=== PATIENT | male | born 1945 | race Caucasian/White ===

== ENCOUNTER 2016-11-26 16:23 | Inpatient (IN) | payer MEDICARE, BC ==
[~2016-11-26] VITALS: Ht 177.8 cm; Wt 85.7 kg
[2016-11-26] MEDS ORDERED: SIMV20TA3 PO (16:40)
[2016-11-26 16:46] LABS: BASOPHILS % (AUTO) 0 % (0-10); EOSINOPHILS # (AUTO) 0.1 10^3/uL (0.0-0.3); EOSINOPHILS % (AUTO) 2 % (0-10); LYMPHOCYTES % (AUTO) 37 % (12-44); MEAN CORPUSCULAR HEMOGLOBIN 32 PG (25-34); MEAN CORPUSCULAR HGB CONC 34 G/DL (32-36); MEAN CORPUSCULAR VOLUME 94 FL (80-99); MEAN PLATELET VOLUME 10.7 FL (7.4-10.4); MONOCYTES # (AUTO) 0.9 X 10^3 (0.0-1.0); MONOCYTES % (AUTO) 11 % (0-12); NEUTROPHILS # (AUTO) 4.1 X 10^3 (1.8-7.8); NEUTROPHILS % (AUTO) 50 % (42-75); PLATELET COUNT 152 10^3/uL (130-400); RED BLOOD COUNT 4.28 10^6/uL (4.35-5.85); RED CELL DISTRIBUTION WIDTH 13.1 % (10.0-14.5); WHITE BLOOD COUNT 8.2 10^3/uL (4.3-11.0)
--- NOTE | 2016-11-26 16:54 | ED Cardiac General ---
History of Present Illness General Chief Complaint: Cardiac/General Problems Stated Complaint: IRREGULAR HEART RATE Source: patient Exam Limitations: no limitations History of Present Illness Time seen by provider: 16:49 Initial Comments The patient is a 71-year-old white male who presents to the emergency room after apparently receiving a message from his material specialist in [place] that his heart monitor was alarming an irregular or rapid rhythm. He states that 6 weeks ago while in [facility] he had a syncopal episode while walking down the street. He did not bother to see his material specialist until about 2 weeks ago. He was instructed that he should not fly so he drove here for his 55th high school reunion. Apparently there was an attempt yesterday to get a hold of him but this was not successful. He went to the green party/dinner. Today he played golf with his old cronies and then decided to come here after receiving the notification. Allergies and Home Medications Allergies Coded Allergies: No Known Drug Allergies (Unverified , 11/26/16) Home Medications Simvastatin 20 Mg Tablet, (Reported) Review of Systems Constitutional: see HPI EENTM: No Symptoms Reported Cardiovascular: Irregular Heart Rate, Other (message from material specialist in [place] was to get to the emergency room he would need a pacemaker.) Gastrointestinal: No Symptoms Reported Genitourinary: No Symptoms Reported Musculoskeletal: no symptoms reported Skin: no symptoms reported Psychiatric/Neurological: No Symptoms Reported Past Cyrxtpc-Vuphuw-Qdcgsn Hx Patient Social History Alcohol Use: Regular Use Alcohol Beverage of Choice: Wine Recreational Drug Use: No Smoking Status: Never a Smoker Recent Foreign Travel: No Contact w/Someone Who Travel: No Surgeries History of Surgeries: Yes Surgeries: Orthopedic Cardiovascular History of Cardiac Disorders: Yes (STENT X3) Cardiac Disorders: High Cholesterol Genitourinary History of Genitourinary Disor: No Gastrointestinal History of Gastrointestinal Di: No Endocrine History of Endocrine Disorders: No Physical Exam Vital Signs Vital Sign - Last 12Hours 11/26/16 16:23 Temp 99.0 Pulse 142 Resp 18 B/P (MAP) 93/78 Capillary Refill : General Appearance: No Apparent Distress, WD/WN HEENT: Normal ENT Inspection Neck: Normal Inspection Respiratory: Chest Non Tender, Lungs Clear, Normal Breath Sounds, No Accessory Muscle Use, No Respiratory Distress Cardiovascular: Irregularly Irregular Gastrointestinal: Normal Bowel Sounds, No Organomegaly, No Pulsatile Mass, Non Tender Extremity: Normal Capillary Refill, Normal Inspection, Normal Range of Motion, Non Tender, No Calf Tenderness, No Pedal Edema Neurologic/Psychiatric: Alert, Oriented x3, No Motor/Sensory Deficits, Normal Mood/Affect Skin: Normal Color Lymphatic: No Adenopathy Progress/Results/Core Measures Results/Orders Lab Results Laboratory Tests Test 11/26/16 16:36 Range/Units White Blood Count 8.2 4.3-11.0 10^3/uL Red Blood Count 4.28 L 4.35-5.85 10^6/uL Hemoglobin 13.8 13.3-17.7 G/DL Hematocrit 40 40-54 % Mean Corpuscular Volume 94 80-99 FL Mean Corpuscular Hemoglobin 32 25-34 PG Mean Corpuscular Hemoglobin Concent 34 32-36 G/DL Red Cell Distribution Width 13.1 10.0-14.5 % Platelet Count 152 130-400 10^3/uL Mean Platelet Volume 10.7 H 7.4-10.4 FL Neutrophils (%) (Auto) 50 42-75 % Lymphocytes (%) (Auto) 37 12-44 % Monocytes (%) (Auto) 11 0-12 % Eosinophils (%) (Auto) 2 0-10 % Basophils (%) (Auto) 0 0-10 % Neutrophils # (Auto) 4.1 1.8-7.8 X 10^3 Lymphocytes # (Auto) 3.0 1.0-4.0 X 10^3 Monocytes # (Auto) 0.9 0.0-1.0 X 10^3 Eosinophils # (Auto) 0.1 0.0-0.3 10^3/uL Basophils # (Auto) 0.0 0.0-0.1 10^3/uL Sodium Level 140 135-145 MMOL/L Potassium Level 4.2 3.6-5.0 MMOL/L Chloride Level 109 H 98-107 MMOL/L Carbon Dioxide Level 23 21-32 MMOL/L Anion Gap 8 5-14 MMOL/L Blood Urea Nitrogen 23 H 7-18 MG/DL Creatinine 1.39 H 0.60-1.30 MG/DL Estimat Glomerular Filtration Rate 50 BUN/Creatinine Ratio 17 Glucose Level 127 H 70-105 MG/DL Calcium Level 9.4 8.5-10.1 MG/DL Total Bilirubin 0.9 0.1-1.0 MG/DL Aspartate Amino Transf (AST/SGOT) 34 5-34 U/L Alanine Aminotransferase (ALT/SGPT) 37 0-55 U/L Alkaline Phosphatase 97 40-136 U/L Troponin I < 0.30 <0.30 NG/ML Total Protein 6.5 6.4-8.2 GM/DL Albumin 3.8 3.2-4.5 GM/DL My Orders Orders - CHERELLE HOUSTON MD Ekg Tracing (11/26/16 16:30) Cbc With Automated Diff (11/26/16 16:40) Comprehensive Metabolic Panel (11/26/16 16:40) Troponin I (11/26/16 16:40) Digoxin Injection (Lanoxin Injection) (11/26/16 17:30) Sodium Chloride (Ad... W/Diltiazem Drip (11/26/16 17:30) Ns Iv 1000 Ml (Sodium Chloride 0.9%) (11/26/16 17:30) Thyroid Stimulating Hormone (11/26/16 17:30) Vital Signs/I&O Vital Sign - Last 12Hours 11/26/16 16:23 Temp 99.0 Pulse 142 Resp 18 B/P (MAP) 93/78 Departure Communication (Admissions) Progress Notes 1715: Discussed with LEIGH Miguel. We felt that the rate of 150 which appeared to be regular was likely to be atrial flutter. The issues were complicated by the relative hypotension. We agreed on a plan to use adenosine to see if we could unveil the atrial flutter. The plan was then because of the relative hypotension to use digoxin and a low-dose Cardizem drip to control the rate. After reentering the room with this plan and talking with the patient his rate dropped to the 110-125 range and was clearly irregular with flutter waves being noted. Adenosine was therefore unnecessary. We will proceed with admission and I spoke to Dr. Vallejo by phone at 1826. Impression Impression: Primary Impression: atrial fib/flutter with rapid ventricular response Disposition: ADMITTED INPATIENT Condition: Stable/Unchanged Admissions Decision to Admit Reason: Admit from ER (General) Decision to Admit/Date: Nov 26, 2016 Time/Decision to Admit Time: 17:41 Transfer Time Spoke to Accepting Phy: 17:41 Departure-Patient Inst. Referrals: NO,LOCAL PHYSICIAN (PCP/Family) Primary Care Physician CHERELLE HOUSTON MD Nov 26, 2016 16:53
[2016-11-26 17:03] LABS: ANION GAP 8 MMOL/L (5-14); BLOOD UREA NITROGEN 23 MG/DL (7-18); CARBON DIOXIDE 23 MMOL/L (21-32); CHLORIDE 109 MMOL/L (98-107); CREATININE SERUM 1.39 MG/DL (0.60-1.30); POTASSIUM 4.2 MMOL/L (3.6-5.0); SODIUM 140 MMOL/L (135-145)
[2016-11-26 17:04] LABS: ALANINE AMINOTRANSFERASE 37 U/L (0-55); ALBUMIN 3.8 GM/DL (3.2-4.5); ASPARTATE AMINO TRANSFERASE 34 U/L (5-34); BILIRUBIN,TOTAL 0.9 MG/DL (0.1-1.0); BUN/CREATININE RATIO 17; CALCIUM 9.4 MG/DL (8.5-10.1); GFR ESTIMATED 50; GLUCOSE 127 MG/DL (70-105); TOTAL PROTEIN 6.5 GM/DL (6.4-8.2)
[2016-11-26 17:09] LABS: TROPONIN I < 0.30 NG/ML (<0.30)
[2016-11-26] MEDS ORDERED: DILTIAZEM DRIP 100 MG in SODIUM CHLORIDE (ADD-VANTAGE) 100 ML IV SCH (17:30)
[2016-11-26] MEDS ORDERED: NS IV 1000 ML 1,000 ML IV SCH (17:30)
[2016-11-26] MEDS ORDERED: DIGOXIN 0.25 MG/ML (LANOXIN) 2 ML AMP IV ONE (17:30)
[2016-11-26 18:25] VITALS: BP 116/89
[2016-11-26] MEDS ORDERED: CATHETER FLUSH 10 ML SYR IV PRN (18:30)
[2016-11-26] MEDS: DILTIAZEM DRIP 100 MG/NS 100 ML IV SCH ×2 (19:25)
[2016-11-26] MEDS: APIXABAN 5 MG (ELIQUIS) TABLET PO SCH (19:41)
[2016-11-26] MEDS: NS IV 1000 ML 1,000 ML IV SCH (19:42)
[2016-11-26 20:00] VITALS: BP 107/73
[2016-11-26] MEDS ORDERED: ATROPINE INJ 0.4 MG/ML SDV IV ONE (20:45)
[2016-11-26 21:00] VITALS: BP 105/64
[2016-11-26 22:00] VITALS: BP 111/68
[2016-11-26 23:00] VITALS: BP 98/54
[2016-11-27] VITALS (27 sets, daily range): BP systolic 87–159; BP diastolic 49–88
[2016-11-27 05:35] LABS: BASOPHILS % (AUTO) 0 % (0-10); EOSINOPHILS # (AUTO) 0.2 10^3/uL (0.0-0.3); EOSINOPHILS % (AUTO) 3 % (0-10); LYMPHOCYTES # (AUTO) 2.4 X 10^3 (1.0-4.0); LYMPHOCYTES % (AUTO) 46 % (12-44); MEAN CORPUSCULAR HEMOGLOBIN 32 PG (25-34); MEAN CORPUSCULAR HGB CONC 33 G/DL (32-36); MEAN CORPUSCULAR VOLUME 96 FL (80-99); MEAN PLATELET VOLUME 10.4 FL (7.4-10.4); MONOCYTES # (AUTO) 0.6 X 10^3 (0.0-1.0); MONOCYTES % (AUTO) 11 % (0-12); NEUTROPHILS # (AUTO) 2.1 X 10^3 (1.8-7.8); NEUTROPHILS % (AUTO) 39 % (42-75); PLATELET COUNT 133 10^3/uL (130-400); RED BLOOD COUNT 4.06 10^6/uL (4.35-5.85); RED CELL DISTRIBUTION WIDTH 13.4 % (10.0-14.5); WHITE BLOOD COUNT 5.3 10^3/uL (4.3-11.0)
[2016-11-27] MEDS: NS IV 1000 ML 1,000 ML IV SCH (05:39)
[2016-11-27 05:48] LABS: ALANINE AMINOTRANSFERASE 30 U/L (0-55); ALBUMIN 3.4 GM/DL (3.2-4.5); ANION GAP 7 MMOL/L (5-14); ASPARTATE AMINO TRANSFERASE 25 U/L (5-34); BILIRUBIN,TOTAL 0.9 MG/DL (0.1-1.0); BLOOD UREA NITROGEN 17 MG/DL (7-18); BUN/CREATININE RATIO 15; CALCIUM 8.6 MG/DL (8.5-10.1); CARBON DIOXIDE 25 MMOL/L (21-32); CHLORIDE 112 MMOL/L (98-107); CREATININE SERUM 1.11 MG/DL (0.60-1.30); GFR ESTIMATED > 60; GLUCOSE 96 MG/DL (70-105); MAGNESIUM 1.9 MG/DL (1.8-2.4); PHOSPHORUS 3.5 MG/DL (2.3-4.7); POTASSIUM 4.5 MMOL/L (3.6-5.0); SODIUM 144 MMOL/L (135-145); TOTAL PROTEIN 5.7 GM/DL (6.4-8.2)
[2016-11-27] MEDS: POTASSIUM CL 10MEQ/50ML IVPB 50 ML IV SCH (05:50)
[2016-11-27] MEDS: KCL 20 MEQ TAB (K-DUR) PO SCH (05:50)
[2016-11-27] MEDS: MAGNESIUM 1 GM/100 ML IVPB 100 ML IV SCH (05:50)
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
[2016-11-27] MEDS ORDERED: ceFAZolin 1,000 MG (ANCEF) VIAL ONE (11:14)
[2016-11-27] MEDS ORDERED: HEParin (CATH LAB) 1,000 ML IV ONE (11:14)
[2016-11-27] MEDS ORDERED: diphenhydrAMINE 50 MG/ML INJ (BENADRYL) ONE (11:15)
[2016-11-27] MEDS ORDERED: fentaNYL INJECTION 100 MCG/2 ML AMP ONE (11:15)
[2016-11-27] MEDS ORDERED: MIDAZOLAM 5 MG/5 ML (VERSED) VIAL ONE (11:15)
[2016-11-27] MEDS ORDERED: BACITRACIN INJECTION 50,000 UNIT, SODIUM CHLORIDE 0.9% IRRIGATIO 500 ML IR ONE ×2 (11:30)
[2016-11-27] MEDS ORDERED: ceFAZolin 1,000 MG (ANCEF) VIAL IV ONE (11:30)
[2016-11-27] MEDS ORDERED: ceFAZolin 1 GM/NS 50 ML IVPB IV ONE ×2 (11:45)
[2016-11-27] MEDS ORDERED: NEO/POLY/BAC (NEOSPORIN) OINT 15 GM TUBE ONE (13:29)
[2016-11-27] MEDS: APIXABAN 5 MG (ELIQUIS) TABLET PO SCH (13:56)
[2016-11-27] MEDS ORDERED: NS IV 1000 ML 1,000 ML IV SCH (14:01)
--- NOTE | 2016-11-27 14:10 | History & Physical-Hospitalist ---
HPI History of Present Illness: HPI/Chief Complaint CC: Event monitor alert HPI: This is a 71 yoWM pt who presented after being notified by cardiology from [place], [place] that he had an event monitor alert. 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 Anglin states that pt needs dual chamber pacer Patient Interview: Pt states he missed his reunion dinner last night at [employer]. Pt states that her graduated in 1961 from [employer]. Pt and I talked about family and friends who were in his class. Pt confirms that he was In [place] 6 weeks ago where he and his were baby-sitting their granddaughter. Pt states he felt faint and came home saw planning analyst in [place], [place]. Pt had a monitor placed and pt states that the communicator was not working well for the first 4-5 days. When contacted by cardiology recently, pt was told not to wait until he returned home from [place]. Pt denies having allergies Pt confirms smoking and ETOH usage Pt states he is retired from [employer]. 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 Lungs sound perfect Pt's procedure is scheduled around 1230. Placement will occur then pt will be observed for 24 hours. Pt will most likely be sore afterward. Pt inquired about how long he will need to be inactive. Pt was in good spirits. Scribed by Lidya Santana under the direct supervision of Dr. Vallejo. Source: patient Exam Limitations: no limitations Date Seen 11/27/16 Time Seen by Provider: 11:00 Attending Physician Michaela Vallejo DO PCP No,Local Physician Referring Physician Date of Admission Nov 26, 2016 at 17:45 Home Medications & Allergies Home Medications Reviewed patient Home Medication Reconciliation Form Allergies Allergies Coded Allergies No Known Drug Allergies (Unverified11/26/16) Past Uvddefv-Vanfkp-Lsbamm Hx Patient Social History Marrital Status: Employed/Student: retired ([employer]) Alcohol Use: Regular Use Number of Drinks Today: 0 Alcohol Beverage of Choice: Wine Recreational Drug Use: No Smoking Status: Former Smoker Physical Abuse Screen: No Sexual Abuse: No Recent Foreign Travel: No Contact w/other who traveled: No Recent Hopitalizations: No Recent Infectious Disease Expo: No Seasonal Allergies Seasonal Allergies: No Surgeries Yes Orthopedic Respiratory No Cardiovascular Yes (STENT X3) High Cholesterol Neurological No Genitourinary No Gastrointestinal No Musculoskeletal No Endocrine History of Endocrine Disorders: No HEENT History of HEENT Disorders: No Cancer No Psychosocial History of Psychiatric Problem: No Integumentary History of Skin or Integumenta: No Review of Systems Constitutional: see HPI, dizziness EENTM: no symptoms reported Respiratory: no symptoms reported Cardiovascular: no symptoms reported Genitourinary: no symptoms reported Musculoskeletal: no symptoms reported Skin: no symptoms reported Psychiatric/Neurological: No Symptoms Reported All Other Systems Reviewed Negative Unless Noted: Yes Physical Exam Physical Exam Vital Signs Vital Sign - Last 12Hours 11/26/16 11/26/16 11/26/16 16:23 17:48 18:00 Temp 99.0 Pulse 142 Resp 18 B/P (MAP) 93/78 Pulse Ox 96 O2 Delivery Room Air Capillary Refill : Less Than 3 Seconds General Appearance: No Apparent Distress, WD/WN Eyes: Bilateral Eye Normal Inspection, Bilateral Eye PERRL HEENT: PERRL/EOMI, Normal ENT Inspection, Pharynx Normal Neck: Full Range of Motion, Normal Inspection, Non Tender, Supple, Carotid Bruit Respiratory: Chest Non Tender, Lungs Clear, Normal Breath Sounds, No Accessory Muscle Use, No Respiratory Distress Cardiovascular: Regular Rate, Rhythm, No Edema, No Gallop, No JVD, No Murmur, Normal Peripheral Pulses Gastrointestinal: Normal Bowel Sounds, No Organomegaly, No Pulsatile Mass, Non Tender, Soft Back: Normal Inspection, No CVA Tenderness, No Vertebral Tenderness Extremity: Normal Capillary Refill, Normal Inspection, Normal Range of Motion, Non Tender, No Calf Tenderness, No Pedal Edema Neurologic/Psychiatric: Alert, Oriented x3, No Motor/Sensory Deficits, Normal Mood/Affect Skin: Normal Color, Warm/Dry Lymphatic: No Adenopathy Results Results/Procedures Lab Laboratory Tests 11/26/16 16:36 11/27/16 05:20 Assessment/Plan Admission Diagnosis SSS at risk for sudden cardiac Assessment and Plan Plan: Dual chamber pacer ~ 1230 Monitor pt Clinical Quality Measures DVT/VTE Risk/Contraindication: Risk Factor Score Per Nursin RFS Level Per Nursing on Admit: 2=Moderate MICHAELA VALLEJO DO Nov 27, 2016 14:10
[2016-11-27] MEDS ORDERED: ACETAMINOPHEN 325 MG TABLET/CAPLET (TYLENOL) PO PRN (14:15)
[2016-11-27] MEDS ORDERED: PATIENT MAY USE OWN MEDS, ALL PO SCH (14:15)
--- NOTE | 2016-11-27 14:27 | Diagnostic Imaging Report ---
INDICATION: Pacemaker placement 2 views of the chest shows mild cardiomegaly with no failure. The lungs are clear. There is no effusion or pneumothorax. A pacemaker is present with leads projected over the right atrium and right ventricle. IMPRESSION: A pacemaker is present. No acute abnormality is seen. Dictated by: Dictated on workstation # [id number]
[2016-11-27] MEDS: DILTIAZEM DRIP 100 MG/NS 100 ML IV SCH ×2 (14:31)
[2016-11-27] MEDS ORDERED: DILTIAZEM 180 MG (CARDIZEM CD) CAP PO ONE (17:00)
[2016-11-27] MEDS ORDERED: SIMvastatin 20 MG (ZOCOR) TAB PO SCH (21:00)
--- NOTE | 2016-11-27 21:02 | OPERATIVE REPORT ---
DATE OF SERVICE: 11/26/2016 PREOPERATIVE DIAGNOSES: Symptomatic sinus node dysfunction with tachycardia-bradycardia syndrome and with documented pauses of greater than 5 seconds. POSTOPERATIVE DIAGNOSES: Symptomatic sinus node dysfunction with tachycardia-bradycardia syndrome and with documented pauses of greater than 5 seconds. PROCEDURE: Dual chamber MRI-compatible pacemaker implantation. The patient is a 71-year-old man who was hospitalized with atrial flutter with rapid ventricular response, but he converted to sinus rhythm with marked bradycardia and with long pauses of considerably greater than 5 seconds. For a full discussion of indications, please refer to the consult note of the same date. He is brought to the cardiac catheterization laboratory in a fasting state. The left prepectoral area was prepared and draped in a usual sterile fashion. A 1% lidocaine was used for local anesthesia. Modified Seldinger technique was used with micropuncture kit to advance to guide wires into the left subclavian vein and the tips were placed in the right atrium. Subsequently, sharp and blunt dissection was used to make a pacemaker pocket. Good hemostasis was assured. The pocket was packed with gauze soaked in an antibiotic solution. The micropuncture wires were exchanged out for 0.035 inch wires and these were then used to advance 6-Yi sheath, which were then used to advance right atrial and right ventricular leads. All lead manipulations were carried out under fluoroscopy. The ventricular lead was placed at the ventricular apex and actively fixed. The atrial lead was placed at the right atrial appendage and actively fixed. The sheaths were removed and the leads were placed into the prepectoral fascia using sleeves and 0 Ethibond. The leads were found to be functioning normally. R wave amplitude was 12.7 volts and the pacing impedance was 888 ohms and the capture threshold was 0.8 volts at 0.5 msec. There was no diaphragmatic stimulation at 10 volts. P wave amplitude was 4.1 millivolts. Atrial pacing impedance was 536 ohms. Atrial threshold was 0.6 volts to 0.5 msec. There was no diaphragmatic stimulation at pacing the atrium at 10 volts. The pocket was thoroughly irrigated with an antibiotic solution and the leads were attached through a pacemaker and the leads and pacemaker were placed in the pacemaker pocket and the pocket was closed in 2 layers using 3.0 Vicryl. The right ventricular lead is Critical Linksronik Solia S60 lead with reference #[id number] and serial #[id number]. The ventricular lead is Biotronik Solia S53 with reference #[id number] and serial #[id number]. The pacemaker is Biotronik Eluna 8 DR-T with reference #[id number] and serial #[id number]. The patient tolerated the procedure well and was transferred out of the cardiac catheterization laboratory in a stable condition. Job ID: [id number] DocumentID: [id number] Dictated Date: 11/27/2016 13:57:59 [employer] Date: 11/27/2016 21:02:13 Dictated By: LEIGH KUHN MD, MA, FACP, FACC, MTDD
[2016-11-27] MEDS: ceFAZolin INJECTION 1,000 MG in NS (IVPB) 50 ML IV SCH (21:30)
[2016-11-28] VITALS (11 sets, daily range): BP systolic 110–136; BP diastolic 57–86
[2016-11-28 05:34] LABS: RED BLOOD COUNT 4.51 10^6/uL (4.35-5.85); RED CELL DISTRIBUTION WIDTH 13.4 % (10.0-14.5); WHITE BLOOD COUNT 7.7 10^3/uL (4.3-11.0)
[2016-11-28] MEDS: ceFAZolin INJECTION 1,000 MG in NS (IVPB) 50 ML IV SCH (06:06)
[2016-11-28 06:13] LABS: ALANINE AMINOTRANSFERASE 28 U/L (0-55); ALBUMIN 3.6 GM/DL (3.2-4.5); ANION GAP 7 MMOL/L (5-14); ASPARTATE AMINO TRANSFERASE 27 U/L (5-34); BILIRUBIN,TOTAL 1.1 MG/DL (0.1-1.0); BLOOD UREA NITROGEN 16 MG/DL (7-18); BUN/CREATININE RATIO 16; CARBON DIOXIDE 27 MMOL/L (21-32); CHLORIDE 106 MMOL/L (98-107); GFR ESTIMATED > 60; GLUCOSE 90 MG/DL (70-105); POTASSIUM 4.4 MMOL/L (3.6-5.0); SODIUM 140 MMOL/L (135-145); TOTAL PROTEIN 6.4 GM/DL (6.4-8.2)
[2016-11-28] MEDS: MAGNESIUM 1 GM/100 ML IVPB 100 ML IV SCH (06:18)
[2016-11-28] MEDS: POTASSIUM CL 10MEQ/50ML IVPB 50 ML IV SCH (06:18)
[2016-11-28] MEDS: KCL 20 MEQ TAB (K-DUR) PO SCH (06:18)
[2016-11-28] MEDS ORDERED: DILTIAZEM 180 MG (CARDIZEM CD) CAP PO SCH (09:00)
[2016-11-28] MEDS ORDERED: CEFDINIR 300 MG (OMNICEF) CAP PO SCH ×2 (09:00)
[2016-11-28] MEDS: DILTIAZEM DRIP 100 MG/NS 100 ML IV SCH ×2 (10:30)
[2016-11-28] MEDS ORDERED: ASPI-999 PO (12:20)
[2016-11-28] MEDS ORDERED: APIX5TAB PO (12:20)
[2016-11-28] MEDS ORDERED: CEFU500T63 PO (12:20)
[2016-11-28] MEDS ORDERED: DILT180C67 PO (12:24)
[2016-11-28] MEDS ORDERED: SIMV10TA3 PO (12:25)
--- NOTE | 2016-11-28 12:27 | Discharge Inst-Post Device ---
Discharge Inst-Post Device Follow up/Plan F/u at Dr Anglin's on 11/30/16 Heart Healthy Diet Do not lift arm on side of device placement above head for 4 weeks. Do not push and pull heavy objects for 4 weeks. Activity as tolerated. Leave dressing on until follow up at the office. LEIGH ANGLIN MD FACP FAC CCDS Nov 28, 2016 12:26
--- NOTE | 2016-11-28 12:27 | Discharge Inst-Cardiology ---
Discharge Inst-Cardiac Discharge Medications New Medications: Apixaban (Eliquis) 5 Mg Tablet 5 MG PO BID, #60 TAB Aspirin (Aspirin) 81 Mg Tab.chew 81 MG PO DAILY, #30 TAB Cefuroxime Axetil (Cefuroxime) 500 Mg Tablet 500 MG PO BID, #9 TAB Diltiazem HCl (Cardizem Cd) 180 Mg Cap.er.24h 180 MG PO DAILY, #30 CAP Simvastatin (Simvastatin) 10 Mg Tablet 10 MG PO DAILY, #30 TAB Discontinued Medications: Simvastatin (Simvastatin) 20 Mg Tablet 20 MG PO LEIGH KUHN MD FACP FAC [facility]S Nov 28, 2016 12:27
--- NOTE | 2016-11-28 12:34 | Progress Note-Cardiology ---
Cardiology SOAP Progress Note Subjective: Feels well No cp or palp or syncope or discomfort at site of device implant Objective: I&O/Vital Signs Vital Sign - Last 12Hours 11/28/16 11/28/16 11/28/16 11/28/16 01:00 01:00 02:00 03:00 Pulse 62 62 61 62 Resp 16 16 15 B/P (MAP) 116/63 116/61 110/57 Pulse Ox 94 96 93 O2 Delivery Room Air Room Air Room Air 11/28/16 11/28/16 11/28/16 11/28/16 04:00 04:00 05:00 06:00 Pulse 64 62 80 Resp 16 17 16 B/P (MAP) 119/67 127/73 136/86 Pulse Ox 96 95 96 O2 Delivery Room Air Room Air Room Air Room Air 11/28/16 11/28/16 11/28/16 11/28/16 07:00 07:00 08:00 08:00 Pulse 73 66 66 Resp 19 15 B/P (MAP) 128/75 127/68 Pulse Ox 94 94 O2 Delivery Room Air Room Air Room Air 11/28/16 11/28/16 11/28/16 09:00 09:00 10:00 Temp 98.7 Pulse 66 66 Resp 16 20 B/P (MAP) 117/72 126/68 Pulse Ox 94 95 O2 Delivery Room Air Room Air Weight (Pounds): 189 Weight (Ounces): 0.0 Weight (Calculated Kilograms): 85.993176 Device Insertion Site: without hematoma Bruising: mild bruising Constitutional: AAO x 3, well-developed, well-nourished Respiratory: No accessory muscle use, No respiratory distress, lungs clear to percussion, lungs clear to auscultation Cardiovascular: regular rate-rhythm, S1 and S2, systolic murmur (faint EDILBERTO at cardiac base) Gastrointestional: No tender, soft, No guarding, No rebound, audible bowel sounds Extremities: No clubbing, No cyanosis, No significant edema Neurologic/Psychiatric: oriented x 3, grossly intact, power is 5/5 both on sides Skin: No rash on exposed areas, No ulcerations on exposed areas Results/Procedures: Labs Laboratory Tests 11/28/16 05:05: White Blood Count 7.7, Red Blood Count 4.51, Hemoglobin 14.1, Hematocrit 43, Mean Corpuscular Volume 95, Mean Corpuscular Hemoglobin 31, Mean Corpuscular Hemoglobin Concent 33, Red Cell Distribution Width 13.4, Platelet Count 132, Mean Platelet Volume 11.0H, Sodium Level 140, Potassium Level 4.4, Chloride Level 106, Carbon Dioxide Level 27, Anion Gap 7, Blood Urea Nitrogen 16, Creatinine 1.00, Estimat Glomerular Filtration Rate > 60, BUN/Creatinine Ratio 16, Glucose Level 90, Calcium Level 9.0, Total Bilirubin 1.1H, Aspartate Amino Transf (AST/SGOT) 27, Alanine Aminotransferase (ALT/SGPT) 28, Alkaline Phosphatase 104, Total Protein 6.4, Albumin 3.6 Laboratory Tests 11/26/16 16:36 11/27/16 05:20 11/28/16 05:05 A/P: Assessment: S/p permanent dual chamber pacemaker implantation on for symptomatic sinus node dysfunction (see below) Sinus node dysfunction with paroxysmal atrial flutter and a rapid ventricular response alternating with sinus rosalba associated with long asystolic pauses ( greater than 5 seconds) in the setting of a fairly long history of intermittent syncope CAD with h/o cor stenting in [place]: Xience V 2.75x23 mm stent to prox LAD on 02/05/11; Xience V 2.5 x28 stent to mid LAD on 02/05/11; Xience V 2.75 x 15 stent to distal RCA on 03/18/11 Chronically somewhat low bp RBBB Hyperlipidemia treated with simvastatin Plan: * We again discussed with him and his our findings and interventions and treatment undertaken * We explained the rationale of his meds and the pros and cons of current regimen * Because of likely augmentation of simvastatin effect with the addition of long acting diltiazem, we are reducing the dose of simva * Apixaban has been added for stroke prophylaxis * Low dose aspirin is being continued because of a h/o CAD that has been treated with cor stents several years ago * We discussed post-op device care * We advised outpatient f/u * We answered questions in detail LEIGH KUHN MD FACP [facility] Nov 28, 2016 12:34
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
--- NOTE | 2016-11-28 12:44 | Progress Note-Hospitalist ---
Progress Note HPI/CC on Admission CC: Event monitor alert HPI: This is a 71 yoWM pt who presented after being notified by cardiology from [place], [place] that he had an event monitor alert. 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 Anglin states that pt needs dual chamber pacer Patient Interview: Pt states he missed his reunion dinner last night at [employer]. Pt states that her graduated in 1961 from [employer]. Pt and I talked about family and friends who were in his class. Pt confirms that he was In [place] 6 weeks ago where he and his were baby-sitting their granddaughter. Pt states he felt faint and came home saw customer services manager in [place], [place]. Pt had a monitor placed and pt states that the communicator was not working well for the first 4-5 days. When contacted by cardiology recently, pt was told not to wait until he returned home from [place]. Pt denies having allergies Pt confirms smoking and ETOH usage Pt states he is retired from [email or web address]. 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 Lungs sound perfect Pt's procedure is scheduled around 1230. Placement will occur then pt will be observed for 24 hours. Pt will most likely be sore afterward. Pt inquired about how long he will need to be inactive. Pt was in good spirits. Scribed by Lidya Santana under the direct supervision of Dr. Vallejo. Progress Notes/Assess & Plan Date Seen 11/28/16 Time Seen by Provider: 11:15 Admission Dx/Process SSS at risk for sudden cardiac Diagonsis/Assessment & Plan commercial agent: Pacemaker placed yest Pt is stepdown status and doing fine Patient Interview: Pt denies seeing Dr. Anglin yet today, and I assured him he will see the pt soon Pt's sister was visiting and states she knows my family Pt confirms feeling sore Physical exam stable. Lungs sound perfect. Pt denies having many concerns at this point, but he confirms feeling weak. Pt' s is concerned about when they can drive back home to [place], [place]. His recovery should not be extensive since he is generally very active. It should be less than a week. AFVSS, Pleasant, sister and her and patient in room Siting chair RRR, CTAB No edema nl ROM Assessment: Syncope likely due to ventricular pauses as documented on Tely and event monitor SSS at risk for sudden cardiac s/p pacemaker placement POD # 1 HLP Plan: s/p DC home if ok w/Cardiology since s/p dual chamber pacemaker placed yesterday w/o complication Maintain new meds per Dr Anglin Scribed by Lidya Santana under the direct supervision of Dr. Vallejo. AMRIT VALLEJO DO Nov 28, 2016 12:44
[2016-11-28] MEDS ORDERED: ASPIRIN 81 MG CHEW (CHILDREN'S ASA) PO ONE (12:45)
== END 2016-11-28 12:50 | disposition home or self-care (01) | DRG 243 ==
LOC: EDUNIT# 16:23 → ER 16:26 → ICU 17:45
PROVIDERS: ADMIT Internal Medicine; ATTEND Internal Medicine
PROC: 0JH606Z Insertion of Pacemaker, Dual Chamber into Chest Subcutaneous Tissue and Fascia, Open Approach (ICD-10-PCS; principal; 2016-11-26)
PROC: 02H63JZ Insertion of Pacemaker Lead into Right Atrium, Percutaneous Approach (ICD-10-PCS; 2016-11-26)
PROC: 02HK3JZ Insertion of Pacemaker Lead into Right Ventricle, Percutaneous Approach (ICD-10-PCS; 2016-11-26)
DX: I49.5 Sick sinus syndrome (principal); I48.92 Unspecified atrial flutter; I48.0 Paroxysmal atrial fibrillation; I95.9 Hypotension, unspecified; I25.10 Atherosclerotic heart disease of native coronary artery without angina pectoris; I45.10 Unspecified right bundle-branch block; E78.5 Hyperlipidemia, unspecified; Z95.5 Presence of coronary angioplasty implant and graft; Z87.891 Personal history of nicotine dependence
CPT/HCPCS: 33208; 36415; 71020; 80053; 83735; 84100; 84443; 84484; 85025; 85027; 93005; 93306; 96365; 96375